=== PATIENT | female | born 1965 | race Caucasian/White ===

== ENCOUNTER 2016-06-30 11:00 | Observation (INO) | payer BC ==
[2016-06-30] MEDS ORDERED: ceFAZolin SODIUM 2 GM in DEXTROSE 5 % IN WATER 50 ML IV PRN ×2 (12:36)
[2016-06-30] MEDS ORDERED: RINGERS SOLUTION,LACTATED 1,000 ML IV PRN (12:36)
[2016-06-30] MEDS ORDERED: GENTAMICIN SULFATE 80 MG in DEXTROSE 5 % IN WATER 100 ML IV PRN ×2 (12:37)
[2016-06-30] MEDS ORDERED: ONDANSETRON HCL/PF 2 MG/ML VIAL IV PRN (12:38)
[2016-06-30] MEDS: MORPHINE SULFATE 2 MG/ML DISP.SYRIN IV PRN ×3 (12:50→21:30)
[2016-06-30] MEDS ORDERED: KETOROLAC TROMETHAMINE 30 MG/ML VIAL IV ONE (15:00)
[2016-06-30] MEDS ORDERED: NORMAL SALINE 1,000 ML IV ONE (15:20)
--- NOTE | 2016-06-30 17:38 | HP ---
<Bushra Wiggins - Last Filed: 07/19/16 14:58> History of Present Illness: Marielena is a 50 year old female with a history of recurrent kidney stones who originally presented to [facility] yesterday with flank pain. CT done at [facility] showed 8 mm obstructing left UPJ stone, 8 mm non obstructing left kidney stone, 4 mm non obstructing right kidney stone. Patient was in preop this am when she was found to have a temp of 104 and thus we were asked to admit the patient for concerns of sepsis. Review Of Systems (GEN) - Review of Systems Generalized/Overall Review: Present: Malaise EENTM: Present: No Symptoms Reported Respiratory: Present: No Symptoms Reported Cardiac: Present: No Symptoms Reported Abdominal: Present: Nausea Genitourinary: Present: No Symptoms Reported Musculoskeletal: Present: Back Pain, Muscle Pain Neurological: Present: No Symptoms Reported Skin: Present: No Symptoms Reported Endocrine: Present: No Symptoms Reported Misc: All systems neg except as marked Allergies/Adverse Reactions: Allergies Allergy/AdvReac Type Severity Reaction Status Date / Time No Known Allergies Allergy Verified 07/07/16 07:14 Home Medications: HOME MEDICATIONS Aspirin/Acetaminophen/Caffeine [Excedrin Extra Strength] 1 tab PO PRN PRN [Last Taken Unknown] Calcium Carbonate/Vitamin D3 [Calcium 600 + Vit D 400 Softgl] 1 each PO DAILY [Last Taken Unknown] Dexlansoprazole [Dexilant] 30 mg PO DAILY 06/30/16 [Last Taken Unknown] [place]-3S/Dha/Epa/Fish Oil [Fish Oil 1,200 mg Softgel] 1,400 each PO DAILY [Last Taken Unknown] Psyllium Husk [Metamucil] 1 cap PO DAILY 06/30/16 [Last Taken Unknown] Vitamin E 400 unit PO BID 06/30/16 [Last Taken Unknown] Cefdinir 300 mg PO BID #20 capsule 07/01/16 [Last Taken Unknown] Oxybutynin Chloride [Ditropan] 5 mg PO TID PRN #30 tab 07/01/16 [Last Taken Unknown] Polyethylene Glycol 3350 [Miralax] 17 gm PO DAILY btl 07/01/16 [Last Taken Unknown] Sennosides/Docusate Sodium [Senna-Docusate Sodium Tablet] 1 - 2 each PO BID #90 tablet 07/01/16 [Last Taken Unknown] oxyCODONE HCL/ACETAMINOPHEN [Percocet 5 MG/325 MG] 1 tab PO Q6H PRN #30 tab [Last Taken Unknown] Exam - Exam Vital Signs: Vital Signs - Last Taken Temp 36.9 C 07/01/16 10:15 Pulse 79 07/01/16 10:15 Resp 20 07/01/16 10:15 BP 118/72 07/01/16 10:15 Pulse Ox 94 07/01/16 10:15 Constitutional: Present: Alert, Oriented x3, Cooperative ENT Exam: Present: hearing grossly normal Eye Exam: bilateral eye: normal inspection Neck: Present: full range of motion, supple Back Exam: Present: CVA tenderness (R), CVA tenderness (L) Respiratory: Present: chest non-tender, lungs clear, normal breath sounds Cardiovascular/Chest: Present: normal peripheral pulses, regular rate, rhythm, no chest tenderness, no murmur Peripheral Pulses: carotid (R): 2+, carotid (L): 2+, dorsalis-pedis (R): 2+, dorsalis-pedis (L): 2+, radial (R): 2+, radial (L): 2+ Abdomen: Present: Normal bowel sounds, soft, nondistended /Rectal: Present: Exam deferred Extremity: Present: non-tender, normal inspection, no pedal edema Skin Exam: Present: normal color, warm/dry, no cyanosis Neurologic: Present: alert, oriented x 3 Assessment/Plan - Narrative Narrative: continue IV fluids. continue IV rocephin. monitor for fevers. await urine culture and any further urology recommendations. pt had undergone cystoscopy with stent placement - will likely go home in morning. - Assessment/Plan (1) UTI (urinary tract infection) Problem: Acute QualifierTitle: Urinary tract infection type: site unspecified Hematuria presence: with hematuria Qualified Code(s): N39.0 - Urinary tract infection, site not specified; R31.9 - Hematuria, unspecified (2) Post-op pain Problem: Acute (3) Uncontrolled pain Problem: Acute <Topete,Cyrus - Last Filed: 08/01/16 00:14> Chief Complaint - Chief Complaint Date of Service: 06/30/16 Time of Service: 17:37 Chief Complaint: Obstructive urolithiasis, pyelonephritis History of Present Illness: Patient was seen and evaluated with Hospitalist, Bushra Wiggins. Agreen with narrative and plan. Per Urology needs antibiotics and monitoring over night. If pain controlled, afebrile, and feeling well may discharge to home tomorrow. Cultures pending will adjust accordingly. - Patient's Past Medical History Patient History - Medical: GERD, Kidney stone Patient History - Cardiac/Respiratory: No pertinent hx Patient History - Cancer: No Hx of Cancer Patient History - Surgical Procedures: Hysterectomy, Tubal Ligation Patient History - Other: None LMP (females 10-50): other - Family History Mother Family History - Medical: Diabetes Type 2 Family History - Cardiac/Respiratory: Coronary Heart Disease, Myocardial Infarction Family History - Cancer: No pertinent family hx Father Family History - Medical: Diabetes Type 2 Insulin Dependent Family History - Cardiac/Respiratory: No pertinent hx Family History - Cancer: No pertinent family hx - Social History Living Situations: home Abuse History: No History of abuse Psych History: No pertinent hx Smoking Status: Never smoker Have you smoked in the past 12 months: No Do you dip or chew tobacco: No Patient requests Smoking Cessation Consult: No Initiate information on Smoking Cessation: No Alcohol Use: none Drug Use: none Exam - Exam Vital Signs: Vital Signs - Last Taken Temp 37 C 06/30/16 17:21 Pulse 95 06/30/16 17:21 Resp 16 06/30/16 17:21 BP 109/53 06/30/16 17:21 Pulse Ox 93 06/30/16 17:21
[2016-06-30] MEDS ORDERED: NORMAL SALINE 1,000 ML IV PRN (18:29)
[2016-07-01] MEDS: MORPHINE SULFATE 2 MG/ML DISP.SYRIN IV PRN (03:15)
[2016-07-01] MEDS ORDERED: ACETAMINOPHEN 325 MG TABLET PO PRN (04:24)
[2016-07-01] MEDS ORDERED: PANTOPRAZOLE SODIUM 20 MG TABLET.DR PO SCH (07:00)
[2016-07-01] MEDS ORDERED: POLYETHYLENE GLYCOL 3350 119 GM BTL ONE (07:23)
[2016-07-01] MEDS ORDERED: POLYETHYLENE GLYCOL 3350 119 GM BTL PO SCH (09:00)
--- NOTE | 2016-07-01 11:05 | DS ---
(1) UTI (urinary tract infection) Problem: Acute Qualifiers: Urinary tract infection type: site unspecified Hematuria presence: with hematuria Qualified Code(s): N39.0 - Urinary tract infection, site not specified; R31.9 - Hematuria, unspecified (2) Post-op pain Problem: Acute (3) Uncontrolled pain Problem: Acute Description of Stay: pt admitted after spiking a fever in preop. pt underwent a cystoscopy with stent placement. pt was fever free at discharge. urology agreed with discharge the next day. pt sent home with oral abx. will call pt tomorrow when final culture returned. Procedures Performed: see notes below List Procedures: cystoscopy with stent placement. Discharge Disposition: Home self care Disposition: Home self-care Condition: Stable Discharge Activity: Activity as tolerated Discharge Diet: General/regular food Consultation Done:: urology Problem Oriented Discharge Instructions to Patient/Family: Urinary Tract Infection, Adult, [id number] Additional Patient Instructions (free text): Call Urology's office on sunday to see if follow up is needed - [phone]. Will call tomorrow will final urine culture results. Prescriptions (Any new or edited meds): Cefdinir 300 mg PO BID #20 capsule Oxybutynin Chloride [Ditropan] 5 mg PO TID PRN #30 tab PRN Reason: Bladder Spasms Sennosides/Docusate Sodium [Senna-Docusate Sodium Tablet] 1 - 2 each PO BID #90 tablet oxyCODONE HCL/ACETAMINOPHEN [Percocet 5 MG/325 MG] 1 tab PO Q6H PRN #30 tab PRN Reason: Pain Complete Home Medications List: Complete Home Medication List: Aspirin/Acetaminophen/Caffeine [Excedrin Extra Strength] 1 tab PO PRN PRN Calcium Carbonate/Vitamin D3 [Calcium 600 + Vit D 400 Softgl] 1 each PO DAILY Dexlansoprazole [Dexilant] 30 mg PO DAILY 06/30/16 [place]-3S/Dha/Epa/Fish Oil [Fish Oil 1,200 mg Softgel] 1,400 each PO DAILY Psyllium Husk [Metamucil] 1 cap PO DAILY 06/30/16 Vitamin E 400 unit PO BID 06/30/16 Cefdinir 300 mg PO BID #20 capsule 07/01/16 Oxybutynin Chloride [Ditropan] 5 mg PO TID PRN #30 tab 07/01/16 Polyethylene Glycol 3350 [Miralax] 17 gm PO DAILY btl 07/01/16 Sennosides/Docusate Sodium [Senna-Docusate Sodium Tablet] 1 - 2 each PO BID #90 tablet 07/01/16 oxyCODONE HCL/ACETAMINOPHEN [Percocet 5 MG/325 MG] 1 tab PO Q6H PRN #30 tab
[2016-07-01 11:20] VITALS: BP 118/72
== END 2016-07-01 11:55 | disposition home or self-care (01) ==
LOC: SUR 11:00 → MS 15:44
PROVIDERS: ADMIT Family Medicine; ATTEND Family Medicine
PROC: 0TC78ZZ Extirpation of Matter from Left Ureter, Via Natural or Artificial Opening Endoscopic (ICD-10-PCS; 2016-06-30)
PROC: 0T778DZ Dilation of Left Ureter with Intraluminal Device, Via Natural or Artificial Opening Endoscopic (ICD-10-PCS; 2016-06-30)
PROC: BT1FYZZ Fluoroscopy of Left Kidney, Ureter and Bladder using Other Contrast (ICD-10-PCS; principal; 2016-06-30 13:10)
DX: R65.20 Severe sepsis without septic shock (principal); N20.2 Calculus of kidney with calculus of ureter; Z87.442 Personal history of urinary calculi; A41.50 Gram-negative sepsis, unspecified; N13.6 Pyonephrosis
CPT/HCPCS: 52330; 52332; 74450; 76000; 87077; 87086; 87186; G0378

== ENCOUNTER 2016-07-07 07:00 | Day surgery (SDC) | payer BC ==
[~2016-07-07 07:00] MED LIST: ACETAMINOPHEN WITH CODEINE 1 EACH TABLET PO PRN; MORPHINE SULFATE 2 MG/ML DISP.SYRIN IV PRN; NORMAL SALINE 1,000 ML IV PRN; ONDANSETRON HCL/PF 2 MG/ML VIAL IV PRN; OXYBUTYNIN CHLORIDE 5 MG TABLET PO PRN; oxyCODONE HCL/ACETAMINOPHEN 1 TAB TABLET PO PRN
--- OUTSIDE RECORDS SUMMARY | 2016-07-07 07:04 | XMS REPORT | Summary of Care ---
:1965 Author Organization [facility] Address [address] [place] [address]- Care Team Providers Name Role Phone Wilfredo Aviles Primary Care Physician Encounter Date(s): 08/24/15 - 08/24/[address] [address]- [facility] Discharge Disposition: Discharged to Home or Self Care Attending Physician: Jerman Ro MD Admitting Physician: Jerman Ro MD Vital Signs No data available for this section Problem List Condition Effective Dates Status Health Status Informant (Confirmed) 05/02/90 - 02/06/91 Resolved (Confirmed) 07/05/85 - 04/11/86 Resolved (Confirmed) 06/28/87 - 04/03/88 Resolved Allergies, Adverse Reactions, Alerts No Known Allergies Medications amoxicillin 500 mg oral tablet 1 tab(s), Oral, BID, # 20 tab(s), 0 Refill(s), Start Date: 07/24/15 14:46:00 CDT , Pharmacy: [facility] [id number] Start Date: 07/24/15 Stop Date: 08/06/15 Status: CompletedAugmentin 875 mg-125 mg oral tablet 1 tab(s), Oral, q12hr, # 20 tab(s), 0 Refill(s), Start Date: 07/20/14 9:26:00 CDT, Pharmacy: [facility] [id number] Start Date: 07/20/14 Stop Date: 09/09/14 Status: DiscontinuedBactrim DS 800 mg-160 mg oral tablet 1 tab(s), Oral, BID, X 3 days, # 6 tab(s), 0 Refill(s), Start Date: 08/06/15 12: 05:00 CDT, Pharmacy: [facility] [id number] Start Date: 08/06/15 Stop Date: 08/09/15 Status: CompletedCaltrate 600 mg oral tablet See Instructions, tab(s) mg Oral daily, Start Date: 08/18/13 9:05:00 CDT Special Instructions: tab(s) mg Oral daily Start Date: 08/18/13 Status: OrderedCipro 250 mg oral tablet 1 tab(s), Oral, q12hr, # 6 tab(s), 0 Refill(s), Start Date: 08/30/14 11:37:00 CDT, Pharmacy: [facility] [id number] Start Date: 08/30/14 Stop Date: 09/09/14 Status: DiscontinuedDexilant 60 mg oral delayed release capsule 1 cap(s), Oral, Daily, # 30 cap(s), 0 Refill(s), Start Date: 09/09/14 8:12:00 CDT Start Date: 09/09/14 Status: Ordereddiclofenac sodium 50 mg oral delayed release tablet 1 tab(s), Oral, BID Start Date: 08/18/13 Status: OrderedFiber Laxative See Instructions, 0 Refill(s) Start Date: 09/08/13 Status: OrderedFish Oil Oral Start Date: 08/18/13 Status: Orderedgabapentin 300 mg oral capsule See Instructions, cap(s) mg Oral TID Special Instructions: cap(s) mg Oral TID Start Date: 08/18/13 Status: Orderedmultivitamin Daily Start Date: 08/18/13 Status: Orderednystatin-triamcinolone 100,000 units/g-0.1% topical cream nicolas, Topical, BID Start Date: 08/18/13 Stop Date: 09/08/13 Status: Discontinuednystatin-triamcinolone 100,000 units/g-0.1% topical cream See Instructions, Topical BID to affected area as directed, # 30 gm, 0 Refill(s ), Pharmacy: [facility] [id number] Special Instructions: Topical BID to affected area as directed Start Date: 09/08/13 Stop Date: 10/27/14 Status: Discontinuedomeprazole See Instructions, Oral Daily Special Instructions: Oral Daily Start Date: 08/18/13 Stop Date: 10/27/14 Status: Discontinued Results No data available for this section Immunizations Vaccine Date Refusal Reason tetanus/diphth/pertuss (Tdap) adult/adol1 09/08/13 tetanus/diphth/pertuss (Tdap) adult/adol2 09/08/13 1Early/Late Reason: Other : charges did not [id number] Comment: pt tolerated procedure well Procedures Procedure Date Related Diagnosis Body Site TL - Tubal ligation 1990 Hysterectomy Social History No data available for this section Assessment and Plan No data available for this section
[2016-07-07] MEDS ORDERED: RINGERS SOLUTION,LACTATED 1,000 ML IV ONE (09:24)
[2016-07-07 10:21] VITALS: BP 124/72
[2016-07-11 15:43] LABS: Stone Composition 2 DNR
== END 2016-07-07 07:01 | disposition home or self-care (01) ==
LOC: AMB 07:00
PROVIDERS: ATTEND Urology
PROC: 0WHR8YZ Insertion of Other Device into Genitourinary Tract, Via Natural or Artificial Opening Endoscopic (ICD-10-PCS; 2016-07-07)
PROC: 0TF48ZZ Fragmentation in Left Kidney Pelvis, Via Natural or Artificial Opening Endoscopic (ICD-10-PCS; principal; 2016-07-07 08:00)
DX: N20.0 Calculus of kidney (principal); N20.1 Calculus of ureter; E66.9 Obesity, unspecified; Z68.37 Body mass index [BMI] 37.0-37.9, adult